=== PATIENT | female | born 1975 | race Asian ===

== ENCOUNTER → 2016-12-26 | Outpatient (CLI) | payer OTHER ==
--- NOTE | 2016-12-26 12:10 | REP ---
CHEST: Two views. COMPARISON: 02/04/2016 There is no evidence of acute infiltrate. No pleural effusion is seen. The heart is normal in size. The mediastinal silhouette is unremarkable. The visualized osseous structures are intact. IMPRESSION: No acute pulmonary disease. Signed by Balwinder Real MD 12/26/2016 03:16 P
== END ==
LOC: M LRY 10:51
PROVIDERS: ATTEND Physician Assistant
DX: R07.9 Chest pain, unspecified (principal)

== ENCOUNTER → 2017-02-17 | Outpatient (CLI) | payer OTHER ==
[~2017-02-17] MED LIST: ESTR1TAB PO; FISH1000 PO; GLUC100020 PO; HYDR200T3 PO; NORCOTAB PO; ZYRT10TA2 PO
--- NOTE | 2017-02-17 16:47 | REP ---
Right hand series: Four views. History: Pain in the right middle finger. Findings: Four views of the right hand demonstrate overall normal mineralization. No fracture or subluxation is seen. There is evidence of mild spurring at the DIP joint of the ring finger. No fracture is seen. Impression: No fracture noted. DIP joint spurring at the ring finger. Otherwise negative. Signed by Yehuda Dobbins MD 02/17/2017 05:02 P
== END ==
LOC: M LRY 13:00
PROVIDERS: ATTEND Nurse Practitioner Family
DX: M79.644 Pain in right finger(s) (principal)
CPT/HCPCS: 73130; G0463

== ENCOUNTER 2017-04-20 20:43 | Emergency (ER) | payer OTHER ==
[~2017-04-20] VITALS: Ht 152.4 cm; Wt 64.7 kg
[2017-04-20] MEDS ORDERED: FISH1000 PO (21:30)
[2017-04-20] MEDS ORDERED: HYDR200T3 PO (21:30)
[2017-04-20] MEDS ORDERED: ESTR1TAB PO (21:30)
[2017-04-20] MEDS ORDERED: ZYRT10TA2 PO (21:30)
[2017-04-20] MEDS ORDERED: GLUC100020 PO (21:30)
[2017-04-20] MEDS ORDERED: NS 1,000 ML IV SCH (22:26)
[2017-04-20] MEDS ORDERED: ASPIRIN 81 MG CHEW TABLET PO ONE (22:30)
[2017-04-20] MEDS ORDERED: NITROGLYCERIN 0.4 MG SUBL TABLET SL PRN (22:30)
[2017-04-20] MEDS ORDERED: MORPHINE 2 MG/ML 1ML SYRINGE IV ONE (23:00)
[2017-04-20 23:03] LABS: BASO % 0.6 % (0.0-1.0); EOS # 0.3 10^3/uL (0.0-0.50); EOS % 4.2 % (0.0-3.0); IMMATURE GRANULOCYTE % 0.2 % (0-0); LYMPH # 1.7 10^3/uL (1.5-4.5); LYMPH % 26.8 % (24.0-44.0); MEAN CORPUSCULAR HEMOGLOBIN 28.8 pg (27.0-33.0); MEAN CORPUSCULAR HGB CONC 33.7 g/dl (32.0-36.5); MEAN CORPUSCULAR VOLUME 85.6 fl (80.0-96.0); MONO # 0.6 10^3/uL (0.0-0.8); MONO % 9.4 % (0.0-5.0); NEUTROPHILS # 3.7 10^3/uL (1.8-7.7); NEUTROPHILS % 58.8 % (36.0-66.0); PLATELET COUNT, AUTOMATED 397 10^3/uL (150-450); RED CELL DISTRIBUTION WIDTH 11.9 % (11.5-14.5); WHITE BLOOD COUNT 6.3 10^3/uL (4.0-10.0)
[2017-04-20 23:14] LABS: INR 0.95
[2017-04-20 23:30] LABS: ANION GAP 4 MEQ/L (8-16); BLOOD UREA NITROGEN 9 MG/DL (7-18); CALCIUM LEVEL 8.8 MG/DL (8.5-10.1); CARBON DIOXIDE LEVEL 32 MEQ/L (21-32); CHLORIDE LEVEL 105 MEQ/L (98-107); CREATININE FOR GFR 0.71 MG/DL (0.55-1.02); GLOMERULAR FILTRATION RATE > 60.0 (>58); GLUCOSE, FASTING 97 MG/DL (70-105); POTASSIUM SERUM 3.4 MEQ/L (3.5-5.1); SODIUM LEVEL 141 MEQ/L (136-145)
[2017-04-20] MEDS ORDERED: NORCOTAB PO (23:34)
[2017-04-20] MEDS ORDERED: NORCO 5/325MG TABLET (BULK FOR ED) PO ONE (23:45)
[2017-04-21 00:13] VITALS: BP 110/64
--- NOTE | 2017-04-21 00:59 | REP ---
Clinical: Chest pain . Comparison: 12/26/2016 . Technique: PA and lateral. Findings: The mediastinum and cardiac silhouette are normal. The lung galdamez are clear and without acute consolidation, effusion, or pneumothorax. The skeletal structures are intact and normal. Impression: 1. No acute cardiopulmonary process. Signed by Emmanuel Smith MD 04/21/2017 12:49 A
--- NOTE | 2017-04-21 05:45 | ECGEPIP ---
Stationary ECG Study [facility] - ED Test Date: 2017-04-20 Pat Name: DERRICK ANDUJAR Department: Room: - Gender: F [employer]: : 1975 Requested By: BHAVNA MARTINS Order Number: [id number] Reading MD: Raciel Funk Measurements Intervals [place] Rate: 67 P: 64 NE: 161 QRS: 24 QRSD: 98 T: 21 QT: 384 QTc: 407 Interpretive Statements SINUS RHYTHM POOR R WAVE PROGRESSION LOW VOLTAGE IN LIMB LEADS BASELINE ARTIFACT AFFECTS INTERPRETATION SIMILAR TO 02/04/16 Electronically Signed On 04-21-2017 5:45:40 EDT by Raciel Funk
== END 2017-04-21 00:14 | disposition home or self-care (01) ==
LOC: M ED 20:43
DX: R07.89 Other chest pain (principal); M25.50 Pain in unspecified joint; Z79.899 Other long term (current) drug therapy